=== PATIENT | female | born 2000 | race Caucasian/White ===

== ENCOUNTER 2020-11-27 13:55 | Emergency (ER) | payer MEDICAID, SELFPAY ==
--- NOTE | ~2020-11-27 | XR_ITS ---
EXAMINATION: XR FOOT, LEFT CLINICAL INFORMATION: Diffuse pain. No known injury. COMPARISON: None TECHNIQUE: AP, lateral, and oblique views of the left foot. FINDINGS: There is no acute or healing fracture, dislocation, destructive process. Bony mineralization appears normal. There is no joint narrowing or erosive change or chondrocalcinosis. No periostitis. No visible ankle capsular effusion. The retrocalcaneal recess is preserved. There are small posterior calcaneal spurs. XR/XR foot LT min 3V IMPRESSION: 1. No fracture, destructive process, or arthropathy. 2. Small posterior calcaneal spurs.
[2020-11-27 14:03] VITALS: BP 131/81; PULSE 87; RESP 18; TEMP 36.6; O2SAT 99; BMI 31.3
--- NOTE | 2020-11-27 15:53 | ED_ITS ---
HPI - Extremity Problem General Chief complaint: Extremity Problem Stated complaint: foot pain Time Seen by Provider: 11/27/20 15:53 Source: patient Mode of arrival: ambulatory History of Present Illness HPI Narrative: 20-year-old female with past medical history of chronic migraines, PCOS, presenting to the ED complaining of left foot pain x2 days. Reports pain with ambulation. Denies known injury/trauma or falls/twisting. Denies numbness, tingling, weakness MD Complaint: extremity pain and extremity swelling Related Data Allergies Allergy/AdvReac Type Severity Reaction Status Date / Time Penicillins Allergy Hives Verified 11/27/20 14:06 Review of Systems Review of Systems: Constitutional: No Fever, No Chills Musculoskeletal: + joint pain, No Myalgias, No Joint Swelling Skin: No Skin Lesions, No rash Neuro: No Weakness, No Numbness, No Paresthesias Yes all other systems are reviewed and are negative COUNTS INCLUDE 234 BEDS AT THE [facility] Past Medical History Attestation statement: The following information was validated with the patient. Medical History (Updated 11/27/20 @ 15:58 by IVY Diaz) Chronic migraine PCOS (polycystic ovarian syndrome) Social History Social History Advance Directives: No Advance Directives Information Provided: No Physical Exam Vital Signs: Vital Signs: Last Vital Signs Temp 98 F 11/27/20 14:03 Pulse 87 11/27/20 14:03 Resp 18 11/27/20 14:03 BP 131/81 11/27/20 14:03 Pulse Ox 99 11/27/20 14:03 Body Mass Index 31.3 Const: General: cooperative and healthy appearing Orientation/consciousness: patient oriented x3 Limitations: no limitations HENMT: Head: Yes normal to inspection Ears: hearing grossly normal bilaterally General nose exam: Normal external nose present Face and sinus: Yes normal facial exam Eyes: General: appearance normal, both eyes and all related structures EOM: EOMs intact bilaterally Neck: Neck: Yes normal visual inspection Resp: Effort & Inspection: normal respiratory effort Cardio: Rate: regular rate Peripheral pulses: dorsalis pedis present Skin: Rashes: no rashes Wounds: no wounds Neuro: Other: Mild swelling noted to left foot with tenderness to palpation. No ecchymosis/erythema. Neurovascularly intact. Sensation intact to light touch. Ankle nontender. Full range of motion intact to ankle General: patient oriented x3, gait normal, tone normal and moves all extremities Gait exam (Neuro): Normal gait present Motor exam (neuro): 5/5 motor strength present throughout Extrem: General: Yes normal to inspection Course Course Course Narrative: XR foot LT min 3V IMPRESSION: 1. No fracture, destructive process, or arthropathy. 2. Small posterior calcaneal spurs. >> results discussed with patient and mother. Patient placed in Jose wrap for comfort/abilities to follow-up with package clerk and pantry worker as needed. Discharge Plan Discharge Clinical Impression: Acute foot pain Qualifiers: Laterality: left Qualified Code(s): M79.672 - Pain in left foot Patient Disposition: Home, Self-Care Instructions: Arthralgia (ED) Additional Instructions: X-rays did not show any acute findings, did show a small posterior calcaneal spur Wear Jose wrap at home as needed for simple the/comfort Ice, elevate, take Tylenol and Motrin Follow-up with her package clerk Referrals: Toya Perez NP [Primary Care Provider] - 2 days Jay Fowler MD [Physician] - 10 days (as needed)
== END 2020-11-27 16:05 | disposition home or self-care (01) ==
PROVIDERS: Emergency Provider Emergency Medicine; PCP Nurse Practitioner Family
DX: M79.672 Pain in left foot (principal)
CPT/HCPCS: 73630; 99283